=== PATIENT | female | born 1965 | race Caucasian/White ===

== ENCOUNTER → 2021-02-15 16:09 | Outpatient (CLI) | payer BC, SELFPAY ==
--- NOTE | 2021-02-15 16:13 | RAD_ITS ---
STUDY: X-RAY - RIGHT FOOT CLINICAL: Female, 56 years old. Pain and swelling TECHNIQUE: 3 view(s) of the foot. COMPARISON: None. FINDINGS: There is an acute, nondisplaced fracture at the base of the fifth proximal phalanx with soft tissue swelling. Normal talus and tarsal bones. Surgical hardware in the calcaneus free of complication Normal visualized subtalar, talonavicular, calcaneocuboid, tarsal and tarsometatarsal articulations. Normal metatarsi. Normal metatarsophalangeal joint of the great toe. Normal tibial and fibular sesamoid bones. Normal interphalangeal joint of the great toe. Normal phalanges of the great toe. Normal second through fifth metatarsophalangeal joints. Normal interphalangeal joints and remaining phalanges of the lesser toes. The soft tissue structures are unremarkable. RAD/Foot min 3 Views IMPRESSION: Acute, nondisplaced fracture in the proximal fifth phalanx with soft tissue swelling Joint spaces well preserved, no other demonstrated fracture Surgical hardware in the calcaneus free of complication Electronically Signed: Jorje Dalton MD at 9:13 EDT , Service support ,
== END ==
PROVIDERS: PCP Family Medicine; Referring Provider Family Medicine; Visit Provider Family Medicine
DX: S92.911A Unspecified fracture of right toe(s), initial encounter for closed fracture (principal)
CPT/HCPCS: 73630